=== PATIENT | male | born 1990 | race Caucasian/White ===

== ENCOUNTER 2018-02-20 16:26 | Observation (INO) | payer BC ==
[~2018-02-20] VITALS: Ht 167.6 cm; Wt 70.3 kg
[2018-02-20 16:40] VITALS: BP 139/85
[2018-02-20 17:05] LABS: URINE BILIRUBIN NEGATIVE (Negative); URINE BLOOD 1+ (Negative); URINE CLARITY CLEAR; URINE COLOR YELLOW; URINE GLUCOSE-RANDOM NEGATIVE (Negative); URINE KETONES 1+ (Negative); URINE LEUKOCYTES-REFLEX NEGATIVE (Negative); URINE NITRITE-REFLEX NEGATIVE (Negative); URINE PROTEIN TRACE (Negative); URINE SPECIFIC GRAVITY >= 1.030 (1.005-1.030)
[2018-02-20 17:17] LABS: ABSOLUTE LYMPHOCYTES 2.2 thou/uL (0.8-5.3); ABSOLUTE MONOCYTES 0.6 thou/uL (0.0-1.2); ABSOLUTE NEUTROPHILS 10.7 thou/uL (1.6-8.1); BASOPHILS 0.1 %; EOSINOPHILS 0.4 %; HEMATOCRIT 46.1 % (42.0-52.0); HEMOGLOBIN 15.8 gm/dL (14.0-18.0); LYMPHOCYTES 16.3 %; MCH 30.1 pg (26.0-34.0); MCHC 34.2 g/dL (28.0-37.0); MONOCYTES 4.7 %; MPV 7.7 fl. (7.2-11.1); NUCLEATED RBCS 0 /100WBC; PLATELET COUNT* 248 thou/uL (150-400); POLYS 78.5 %; RBC 5.24 mil/uL (4.50-6.00); RDW-CV 12.2 % (10.5-14.5); WBC 13.6 thou/uL (4.0-11.0)
[2018-02-20 17:21] LABS: SQUAMOUS 0-3 Few /LPF (0-3); URINE RBC 3-10 Few /HPF (0-2)
[2018-02-20 17:22] LABS: BACTERIA-REFLEX 1-9 Few /HPF (None Seen); CRYSTALS None Seen /LPF (None Seen)
[2018-02-20 17:23] LABS: HYALINE CASTS 0-3 Few /LPF (None Seen); MUCUS None Seen strn/LPF (None Seen)
[2018-02-20 17:24] LABS: URINE WBC-REFLEX None Seen /HPF (0-5)
[2018-02-20 17:38] LABS: CREATININE 1.1 mg/dL (0.6-1.3); POTASSIUM 3.6 mmol/L (3.5-5.1)
[2018-02-20 17:42] LABS: ALBUMIN 4.6 g/dL (3.4-5.0); TOTAL BILIRUBIN 0.5 mg/dL (<0.1-1.0); TOTAL PROTEIN 8.4 g/dL (6.4-8.2)
[2018-02-20 21:01] VITALS: BP 135/79
[2018-02-20 23:02] VITALS: BP 139/83
--- NOTE | 2018-02-21 03:48 | NUR ---
ASSUMED CARE OF PT AT 2250. PT IS ALERT AND ORIENTED. VSS. PERRLA. PT DENIES PAIN. UP WITH STAND BY ASSIST. PT IS SLEEPING QUIETLY IN BED. RESPIRATIONS ARE EVEN AND NONLABORED. WILL CONTINUE TO MONITOR PT.
[2018-02-21 07:50] VITALS: BP 135/94
[2018-02-21 12:41] VITALS: BP 135/94
[2018-02-21] MEDS ORDERED: HYDROCODONE-AP1 EAC6 PO (12:53)
--- NOTE | 2018-02-21 13:48 | NUR ---
PT TOLERATING DIET AND PAIN RELIEF CONTROL MEASURES AT THIS TIME. DC INSTRUCTIONS GIVEN TO PT AND PT ABLE TO VERBALIZE UNDERSTANDING REGARDING PAIN MEDICATIONS AND DISCUSSION REGARDING NARCOTIC PRECAUTIONS SUCH NOT OPERATING A VEHICLE WHILE TAKING PAIN MEDICATIONS. PT STATED FAMILY WAS TO PICK HIM UP IN THE EMERGENCY DEPARTMENT. PT GIVEN ONE MORE DOSE OF PAIN MEDICATION, PT GIVEN 1 RX AND PT AMBULATED OUT OF UNIT TO THE EMERGENCY DEPARTMENT WITH A STEADY GAIT AT THIS TIME.
[2018-02-21 13:57] VITALS: BP 135/94
--- NOTE | 2018-02-26 11:26 | OP ---
[address] [address] OPERATIVE REPORT Name: AGA WILLIS Room: [address] Agnes Gramajo#: [id number] Admission: 02/20/18 Attend Phys: Surendra Schwarz DO Discharge: 02/21/18 Date of : 89 Report #: [id number] THIS REPORT FOR: //name// CC: Surendra Schwarz [facility] physician/PCP DICTATED BY: González Penaloza DO DATE OF SERVICE: 02/20/2018 PREOPERATIVE DIAGNOSIS: Acute appendicitis. POSTOPERATIVE DIAGNOSIS: Acute appendicitis. SURGEON: Surendra Schwarz DO CO-SURGEON: González Penaloza DO, PGY1 DISASTER DIRECTOR: Hao Jimenez MS3 OPERATION PERFORMED: Laparoscopic appendectomy. ANESTHESIA TYPE: General endotracheal and local. ESTIMATED BLOOD LOSS: 2 mL. SPECIMENS REMOVED: Appendix. COMPLICATIONS: None. OPERATIVE FINDINGS: Were acutely inflamed enlarged hyperemic appendix. HISTORY OF PRESENT ILLNESS: The patient is a pleasant 27-year-old male who presented to the ED with chief complaint of 2 days increasing right lower quadrant abdominal pain associated with nausea, vomiting, anorexia. The patient was found to have white blood cell count of 13.[address] findings of an enlarged appendix with periappendiceal fat stranding. DESCRIPTION OF PROCEDURE: Obtained written consent from the patient for surgery, the patient fully discussed procedure, risks, alternatives, possible complications to include but not limited to bleeding, infection, postoperative pain, scarring, hernia, injury to bowel or bladder, need to convert to an open procedure, possible drain placement, staple line failure, stump appendicitis, need further surgery, anesthesia risks. The patient voiced understanding of these risks, asked proper questions and agreed to proceed with surgery. Preop antibiotics 2 grams Ancef were given. The patient was taken to the OR, [place] [address] OPERATIVE REPORT Name: AGA WILLIS Room: [address] Agnes Gramajo#: [id number] Admission: 02/20/18 Attend Phys: Surendra Schwarz, DO Discharge: 02/21/18 Date of : 89 Report #: [id number] transferred to the operating table, placed in supine position. SCDs were placed, grounding pad anesthesia then administered general endotracheal intubation. The patient was prepped and draped in sterile standard fashion. Timeout was performed prior to incision. We began using 11 blade scalpel, made a 10 mm incision superior to the umbilicus using open Storey technique with electrocautery and blunt dissection, dissected down to the level of the fascia. Fascia was scored and 2 Kochers were applied. Hemostat was used to enter the peritoneum and abdominal cavity. Next, 2-0 Vicryl sutures on a UR-6 needle were placed superior and inferiorly at the apex of fascia, 10 mm Evita trocar was then placed into the abdomen. We then verified entry with the scope. High flow insufflation was used to inflate the abdomen to 15 mmHg. We began by inspecting the abdominal cavity. There was a small amount of fluid in the pelvis and grossly enlarged appendix, hyperemia, some acute inflammation. No other obvious abnormalities were noted. We then placed a 5 mm trocar in suprapubic region and a 12 mm trocar in the left lower quadrant. Using a blunt dissecting Cheryl, the small bowel was swept away from the right lower quadrant, put the patient in Trendelenburg and left side down. The appendix was then grasped by the mesoappendix elevated and Harmonic scalpel was used to dissect the mesoappendix back to the base. Next, we used an Endo-ALBAN 35 mm blue load to staple across the base of the appendix. This was done with one load. The appendix was then placed into a 10 mm EndoCatch bag through the umbilical incision. Abdomen was further inspected. Staple line was inspected as well. There was no ongoing blood loss. We then removed the suprapubic trocar and the left lower quadrant trocar was removed under direct visualization using a Merrick-Karla suturing device and 0 Vicryl suture was placed to close the fascia and peritoneum of the left lower quadrant incision. We slowly desufflated noting again that there was no ongoing blood loss from the staple line or from the either trocar incision site. Abdomen was completely desufflated. Camera was removed. A 10 mm trocar was then removed as well as the appendix through the umbilical incision in the EndoCatch bag. Appendix was noted to be very firm at this time. Using finger sweep noting that there was no bowel trapped underneath the fascia, the 2 stay sutures were pulled up. Two additional [id number] 0 Vicryl sutures on UR-6 were placed to close the fascia. Next, 4-0 Monocryl was used to close the skin, 40 mL of 0.5% Marcaine were used as local anesthetic. The area was cleaned. Mastisol, Steri-Strips and Tegaderms followed by gauze and Medipore tape pressure dressing were applied. The patient was extubated in the OR and transferred to PACU in stable condition. The patient tolerated the procedure well. After a brief recovery from anesthesia, he will be transferred to the floor overnight with plans for possible discharge tomorrow. <ELECTRONICALLY SIGNED> By: Surendra Schwarz DO 02/26/18 [id number] Schwarz DO /van
== END 2018-02-21 13:57 | disposition home or self-care (01) ==
LOC: M.ERS 16:26 → M.SUR 16:26 → M.ORTHSURG 22:09 → M.SUR 22:09 → M.TBA-ER 22:09 → M.ORTHSURG 22:53
PROVIDERS: Nurse Practitioner Family; ADMIT Surgery
DX: K35.80 Unspecified acute appendicitis (principal); R10.31 Right lower quadrant pain; R63.0 Anorexia